=== PATIENT | male | born 1950 | race Caucasian/White ===

== ENCOUNTER 2023-08-20 10:57 | Outpatient (CLI) | payer OTHER ==
[~2023-08-20 10:57] MED LIST: DIOVAN160 M1; INDOMETHACIN50 MG PO; TUSSIONEX PENNKI5 ML PO; VITAMIN B COMPL1 CAP
== END 2023-08-20 10:58 | disposition home or self-care (01) ==
LOC: NUCLEAR 10:57
PROVIDERS: ATTEND Specialist
DX: K76.9 Liver disease, unspecified (principal)
CPT/HCPCS: 78215; A9541